=== PATIENT | female | born 1990 | race Caucasian/White ===

== ENCOUNTER 2017-10-23 08:41 | Inpatient (IN) | payer OTHER ==
[~2017-10-23] VITALS: Ht 152.4 cm; Wt 86.8 kg
[~2017-10-23 08:41] MED LIST: ALBUTEROL SULF8.5 GM IH; ATARAX,VISTARIL50 MG PO; BACTRIM,SEPT1 TABLET PO; INDOCIN50 MG PO; NAPROXEN500 MG PO; NORCO 5/3251 TABLET PO; NORCO 7.5/321 TABLET PO; PEPCID20 MG PO; TESSALON200 MG PO; ZANTAC150 MG PO
[2017-10-23 09:06] VITALS: BP 117/72
[2017-10-23 09:37] LABS: EOSINOPHIL (%) 0.4 % (0-5); EOSINOPHIL COUNT 0.1 K/uL (0-0.3); HEMATOCRIT 37.4 % (36.0-46.0); IMMATURE GRANULOCYTE (%) 1.6 % (0.0-0.7); IMMATURE GRANULOCYTE COUNT 0.3 K/uL; INSTRUMENT ABS NEUTROPHIL CT 12.1 K/uL; LYMPHOCYTE COUNT 2.2 K/uL (1.0-2.8); MCH 31.5 PG (29.0-34.0); MCHC 34.5 G/DL (30.0-36.0); MCV 91.2 FL (83-99); MEAN PLAT.VOLUME 11.5 uM^3 (9.5-12.4); MONOCYTE (%) 5.5 % (3-12); MONOCYTE COUNT 0.9 K/uL (0-0.8); NEUTROPHIL (%) 77.9 % (45-76); NEUTROPHIL COUNT 12.1 K/uL (1.8-6.4); PLATELET COUNT 248 K/uL (156-360); RBC DIS.WIDTH-CV 14.2 % (11.8-14.6); RBC DIS.WIDTH-SD 46.9 % (39-53); WHITE BLOOD COUNT 15.6 K/uL (4.1-10.2)
[2017-10-23 10:07] VITALS: BP 110/66
[2017-10-23 15:05] VITALS: BP 124/65
[2017-10-23 18:09] VITALS: BP 104/55
[2017-10-23 20:50] VITALS: BP 120/64
[2017-10-23 23:34] VITALS: BP 102/53
[2017-10-24 00:53] VITALS: BP 92/50
[2017-10-24 03:45] VITALS: BP 104/53
[2017-10-24 08:23] LABS: EOSINOPHIL (%) 0.9 % (0-5); EOSINOPHIL COUNT 0.1 K/uL (0-0.3); HEMATOCRIT 32.1 % (36.0-46.0); IMMATURE GRANULOCYTE (%) 0.9 % (0.0-0.7); IMMATURE GRANULOCYTE COUNT 0.1 K/uL; INSTRUMENT ABS NEUTROPHIL CT 10.6 K/uL; MCH 30.6 PG (29.0-34.0); MCHC 33.3 G/DL (30.0-36.0); MCV 91.7 FL (83-99); MEAN PLAT.VOLUME 11.6 uM^3 (9.5-12.4); MONOCYTE (%) 6.7 % (3-12); NEUTROPHIL (%) 71.2 % (45-76); NEUTROPHIL COUNT 10.6 K/uL (1.8-6.4); PLATELET COUNT 230 K/uL (156-360); RBC DIS.WIDTH-CV 14.2 % (11.8-14.6); RBC DIS.WIDTH-SD 47.2 % (39-53); WHITE BLOOD COUNT 14.9 K/uL (4.1-10.2)
[2017-10-24 19:42] VITALS: BP 113/56
[2017-10-24 23:28] VITALS: BP 102/67
[2017-10-25] MEDS ORDERED: ENDOCET 5-3251 EACH PO (04:02)
[2017-10-25] MEDS ORDERED: IBUPROFEN800 MG PO (04:02)
[2017-10-25] MEDS ORDERED: CHROMAGEN,1 CAPSULE PO (04:02)
[2017-10-25 04:09] VITALS: BP 110/67
[2017-10-25 22:59] VITALS: BP 121/78
[2017-10-26 07:57] VITALS: BP 113/70
== END 2017-10-26 12:10 | disposition home or self-care (01) | DRG 765 ==
LOC: 2WEST 08:41 → EDSTATUS 13:08 → SDC 13:08 → 2SOUTH 13:09 → 2WEST 10-26 12:10
PROVIDERS: Obstetrics & Gynecology Obstetrics
PROC: 10D00Z1 Extraction of Products of Conception, Low, Open Approach (ICD-10-PCS; principal; 2017-10-23)
DX: O34.211 Maternal care for low transverse scar from previous cesarean delivery (principal); D62 Acute posthemorrhagic anemia; O99.214 Obesity complicating childbirth; Z37.0 Single live birth; Z3A.39 39 weeks gestation of pregnancy; O99.824 Streptococcus B carrier state complicating childbirth; E66.9 Obesity, unspecified; E28.2 Polycystic ovarian syndrome; O99.02 Anemia complicating childbirth; D50.9 Iron deficiency anemia, unspecified; Z68.37 Body mass index [BMI] 37.0-37.9, adult; Z85.828 Personal history of other malignant neoplasm of skin; Z86.001 Personal history of in-situ neoplasm of cervix uteri; Z87.891 Personal history of nicotine dependence; Z82.5 Family history of asthma and other chronic lower respiratory diseases; Z81.1 Family history of alcohol abuse and dependence; Z80.52 Family history of malignant neoplasm of bladder; Z80.1 Family history of malignant neoplasm of trachea, bronchus and lung
CPT/HCPCS: 85025; 86850; 86870; 86900; 86901; 86920; J0690; J1200; J1885; J2175; J2274; J2405; J2590; J3010; J7120